=== PATIENT | female | born 1970 | race Caucasian/White ===

== ENCOUNTER 2016-10-28 17:04 | Emergency (ER) | payer MEDICAID ==
[~2016-10-28] VITALS: Ht 170.2 cm; Wt 65.0 kg
[2016-10-28 19:56] LABS: *BARBITURATES SCREEN URINE NEGATIVE (NEGATIVE); *BENZODIAZEPINES SCREEN URINE NEGATIVE (NEGATIVE); *COCAINE SCREEN URINE NEGATIVE (NEGATIVE); CANNABINOID URINE SCREEN NEGATIVE (NEGATIVE); METHADONE URINE SCREEN NEGATIVE (NEGATIVE); OPIATES URINE SCREEN NEGATIVE (NEGATIVE); PHENCYCLIDINE URINE SCREEN NEGATIVE (NEGATIVE)
[2016-10-28 19:59] LABS: *AMPHETAMINES SCREEN URINE PRESUMTIVE POSITIVE (NEGATIVE); ECSTASY MDMA SCREEN URINE CONF.TEST INDICATED (NEGATIVE)
[2016-10-28 22:20] VITALS: BP 125/87
== END 2016-10-28 22:35 | disposition home or self-care (01) ==
LOC: ER 18:03
DX: F15.10 Other stimulant abuse, uncomplicated (principal); F16.10 Hallucinogen abuse, uncomplicated
CPT/HCPCS: 80305; 81025; 99283; Z7610

== ENCOUNTER 2017-04-24 06:37 | Emergency (ER) | payer MEDICAID, OTHER ==
[~2017-04-24] VITALS: Ht 154.9 cm; Wt 64.0 kg
[2017-04-24] MEDS ORDERED: MAGNESIUM/ALUMINUM HYDROXIDE/SIMETHICONE 30ML UDC PO STA (07:36)
[2017-04-24] MEDS ORDERED: ONDANSETRON HCL 4MG/2ML VIAL IV STA (07:36)
[2017-04-24] MEDS ORDERED: FAMOTIDINE 20MG/2ML VIAL IV STA (07:36)
[2017-04-24] MEDS ORDERED: SODIUM CHLORIDE 0.9% 1,000 ML IV ONE (07:36)
[2017-04-24] MEDS ORDERED: MORPHINE SULFATE 2 MG/ML CPJ (NOT FOR IM USE) IV ONE (07:45)
[2017-04-24 08:22] LABS: EOSINOPHILS % 2.4 % (0.0-5.0); HEMOGLOBIN. 10.4 g/dL (12.0-16.0); MEAN CORPUSCULAR VOLUME 83.1 fL (81.0-99.0); MEAN PLATELET VOLUME 7.1 fl (7.4-10.4); MONOCYTES % 7.8 % (2.0-8.0); NEUTROPHILS % 57.8 % (40.0-76.0); PLATELET 408 x1000/uL (130-400); RED BLOOD CELL COUNT 3.85 mill/uL (4.2-5.4); RED CELL DISTRIBUTION WIDTH 17.3 % (11.6-14.6)
[2017-04-24 08:31] LABS: HCG SCREEN NEGATIVE; PROTHROMBIN TIME 10.1 sec (9.4-11.6)
[2017-04-24 08:39] LABS: CARBON DIOXIDE 26 mEq/L (21-32); CHLORIDE 109 mEq/L (98-107); TROPONIN I < 0.02 ng/mL (0.00-0.04)
[2017-04-24] MEDS ORDERED: MORPHINE SULFATE 10 MG/ML CPJ IV ONE (10:00)
[2017-04-24 10:09] LABS: GLUCOSE URINE NEGATIVE (NEGATIVE); KETONES URINE NEGATIVE (NEGATIVE); LEUKOCYTE ESTERASE URINE NEGATIVE (NEGATIVE); NITRITE URINE NEGATIVE (NEGATIVE); OCCULT BLOOD URINE NEGATIVE (NEGATIVE); PH URINE 6.5 (4.5-8.0); PROTEIN URINE NEGATIVE (NEGATIVE); SPECIFIC GRAVITY URINE 1.024 (1.005-1.030)
[2017-04-24 10:10] LABS: CLARITY URINE CLEAR (CLEAR); COLOR URINE YELLOW (YELLOW)
[2017-04-24 12:47] VITALS: BP 98/55
== END 2017-04-24 12:49 | disposition home or self-care (01) ==
LOC: ER 06:40
DX: K80.70 Calculus of gallbladder and bile duct without cholecystitis without obstruction (principal); R19.7 Diarrhea, unspecified; F15.10 Other stimulant abuse, uncomplicated; F17.290 Nicotine dependence, other tobacco product, uncomplicated
CPT/HCPCS: 36415; 71010; 76700; 80053; 81003; 83690; 84484; 84703; 85025; 85610; 93005; 96361; 96374; 96375; 96376; 99285; 99406; J2270; J2405; J3490; J7030; Z7610

== ENCOUNTER 2019-02-06 19:11 | Emergency (ER) | payer MEDICAID ==
[~2019-02-06] VITALS: Ht 154.9 cm; Wt 59.0 kg
[2019-02-06] MEDS ORDERED: ONDANSETRON HCL 4MG/2ML INJ IV STA (19:48)
[2019-02-06] MEDS ORDERED: SODIUM CHLORIDE 0.9% 1,000 ML IV ONE (19:48)
[2019-02-06] MEDS ORDERED: MORPHINE SULFATE 4 MG/ML CPJ (NOT FOR IM USE) IV ONE (20:00)
[2019-02-06 20:08] LABS: BASOPHILS % 0.8 % (0.0-2.0); EOSINOPHILS % 1.8 % (0.0-5.0); HEMATOCRIT. 31.5 % (36.0-48.0); HEMOGLOBIN. 9.9 g/dL (12.0-16.0); MEAN CORPUSCULAR HEMOGLOBIN 24.7 pg (28.0-32.0); MEAN CORPUSCULAR VOLUME 78.7 fL (81.0-99.0); MEAN PLATELET VOLUME 6.7 fl (7.4-10.4); MONOCYTES % 7.4 % (2.0-8.0); PLATELET 420 x1000/uL (130-400); RED CELL DISTRIBUTION WIDTH 19.9 % (11.6-14.6)
[2019-02-06 20:11] LABS: CHLORIDE 108 mEq/L (98-107)
[2019-02-06 20:12] LABS: PROTHROMBIN TIME 9.9 sec (9.6-11.0)
[2019-02-06 21:35] LABS: CLARITY URINE TURBID (CLEAR); COLOR URINE YELLOW (YELLOW); KETONES URINE TRACE (NEGATIVE); LEUKOCYTE ESTERASE URINE NEGATIVE (NEGATIVE); NITRITE URINE NEGATIVE (NEGATIVE); OCCULT BLOOD URINE NEGATIVE (NEGATIVE); PROTEIN URINE TRACE (NEGATIVE); SPECIFIC GRAVITY URINE 1.034 (1.005-1.030)
[2019-02-06] MEDS ORDERED: LORAZEPAM 2MG/ML CPJ IV ONE (22:45)
[2019-02-06] MEDS ORDERED: METOCLOPRAMIDE HCL 10MG/2ML VIAL IV ONE (22:45)
[2019-02-06] MEDS ORDERED: ONDANSETRON HCL 4MG/2ML INJ IV ONE (22:45)
[2019-02-07 03:00] VITALS: BP 125/79
== END 2019-02-07 03:10 | disposition home or self-care (01) ==
LOC: ER 19:11
DX: K52.9 Noninfective gastroenteritis and colitis, unspecified (principal); R11.2 Nausea with vomiting, unspecified; F15.10 Other stimulant abuse, uncomplicated; Z90.49 Acquired absence of other specified parts of digestive tract; Z88.6 Allergy status to analgesic agent
CPT/HCPCS: 36415; 71045; 74176; 76705; 80053; 81003; 83690; 85025; 85610; 96361; 96374; 96375; 96376; 99284; J2270; J2405; J2765; J7030

== ENCOUNTER 2019-09-13 14:30 | Emergency (ER) | payer OTHER ==
[~2019-09-13] VITALS: Ht 154.9 cm; Wt 64.0 kg
[2019-09-13] MEDS ORDERED: SODIUM CHLORIDE 0.9% 1,000 ML IV ONE (18:03)
[2019-09-13] MEDS ORDERED: ONDANSETRON HCL 4MG/2ML INJ IV STA (18:03)
[2019-09-13 18:47] LABS: CHLORIDE 110 mEq/L (98-107)
[2019-09-13 18:47] LABS: CLARITY URINE TURBID (CLEAR); COLOR URINE RED (YELLOW); KETONES URINE 2+ (NEGATIVE); LEUKOCYTE ESTERASE URINE 2+ (NEGATIVE); NITRITE URINE NEGATIVE (NEGATIVE); OCCULT BLOOD URINE 3+ (NEGATIVE); PH URINE 5.5 (4.5-8.0); PROTEIN URINE 3+ (NEGATIVE); SPECIFIC GRAVITY URINE 1.032 (1.005-1.030); UROBILINOGEN URINE 0.2 E.U./dL (0.2-1.0)
[2019-09-13 18:52] LABS: BASOPHILS % 0.6 % (0.0-2.0); EOSINOPHILS % 0.7 % (0.0-5.0); HEMATOCRIT. 36.5 % (36.0-48.0); HEMOGLOBIN. 12.2 g/dL (12.0-16.0); LYMPHOCYTES % 23.2 % (20.0-50.0); MEAN CORPUSCULAR HEMOGLOBIN 29.3 pg (28.0-32.0); MEAN CORPUSCULAR VOLUME 87.6 fL (81.0-99.0); MEAN PLATELET VOLUME 7.2 fl (7.4-10.4); MONOCYTES % 6.6 % (2.0-8.0); NEUTROPHILS % 68.9 % (40.0-76.0); PLATELET 429 x1000/uL (130-400); RED BLOOD CELL COUNT 4.17 mill/uL (4.2-5.4); RED CELL DISTRIBUTION WIDTH 15.1 % (11.6-14.6)
[2019-09-13] MEDS ORDERED: CEFTRIAXONE 1 G PREMIX 50 ML IV ONE (19:30)
[2019-09-13 21:00] VITALS: BP 136/84
== END 2019-09-13 21:01 | disposition home or self-care (01) ==
LOC: ER 14:30
DX: N39.0 Urinary tract infection, site not specified (principal); R03.0 Elevated blood-pressure reading, without diagnosis of hypertension; E86.0 Dehydration; R06.00 Dyspnea, unspecified; Z85.9 Personal history of malignant neoplasm, unspecified; Z92.3 Personal history of irradiation
CPT/HCPCS: 36415; 71045; 80053; 81003; 81025; 83605; 83690; 83880; 84484; 85025; 93005; 96365; 96375; 99285; J0696; J2405; J7030

== ENCOUNTER 2019-09-20 22:53 | Emergency (ER) | payer OTHER ==
[~2019-09-20] VITALS: Ht 165.1 cm; Wt 63.0 kg
[2019-09-20] MEDS ORDERED: ONDANSETRON HCL 4MG/2ML INJ IV STA (23:59)
[2019-09-20] MEDS ORDERED: MORPHINE SULFATE 4 MG/ML CPJ (NOT FOR IM USE) IV STA (23:59)
[2019-09-20] MEDS ORDERED: SODIUM CHLORIDE 0.9% 1,000 ML IV ONE (23:59)
[2019-09-21 00:37] LABS: EOSINOPHILS % 1.2 % (0.0-5.0); HEMATOCRIT. 34.4 % (36.0-48.0); HEMOGLOBIN. 11.3 g/dL (12.0-16.0); LYMPHOCYTES % 32.1 % (20.0-50.0); MEAN CORPUSCULAR HEMOGLOBIN 28.7 pg (28.0-32.0); NEUTROPHILS % 56.7 % (40.0-76.0); PLATELET 429 x1000/uL (130-400); RED BLOOD CELL COUNT 3.95 mill/uL (4.2-5.4); RED CELL DISTRIBUTION WIDTH 14.7 % (11.6-14.6)
[2019-09-21 00:38] LABS: CHLORIDE 106 mEq/L (98-107)
[2019-09-21] MEDS ORDERED: IOHEXOL-300 100 ML BOTTLE ONE (02:46)
[2019-09-21 06:09] VITALS: BP 111/60
== END 2019-09-21 06:36 | disposition home or self-care (01) ==
LOC: ER 22:53
DX: R11.2 Nausea with vomiting, unspecified (principal); R19.7 Diarrhea, unspecified; M79.10 Myalgia, unspecified site; Z85.038 Personal history of other malignant neoplasm of large intestine; Z88.6 Allergy status to analgesic agent; Z90.49 Acquired absence of other specified parts of digestive tract
CPT/HCPCS: 36415; 74177; 80053; 83605; 83690; 85025; 96361; 96374; 96375; 99285; J2270; J2405; J7030; Q9967

== ENCOUNTER 2019-10-06 22:43 | Inpatient (IN) | payer MEDICAID, OTHER ==
[~2019-10-06] VITALS: Ht 154.9 cm; Wt 62.6 kg
[2019-10-06] MEDS ORDERED: ONDANSETRON HCL 4MG/2ML INJ IV STA (23:10)
[2019-10-06] MEDS ORDERED: SODIUM CHLORIDE 0.9% 1,000 ML IV ONE (23:10)
[2019-10-06] MEDS ORDERED: MORPHINE SULFATE 4 MG/ML CPJ (NOT FOR IM USE) IV STA (23:10)
[2019-10-06 23:30] LABS: CHLORIDE 111 mEq/L (98-107)
[2019-10-06 23:48] LABS: BASOPHILS % 0.8 % (0.0-2.0); HCG SCREEN NEGATIVE; HEMATOCRIT. 30.5 % (36.0-48.0); LYMPHOCYTES % 25.7 % (20.0-50.0); MEAN CORPUSCULAR HEMOGLOBIN 28.1 pg (28.0-32.0); MEAN CORPUSCULAR VOLUME 85.8 fL (81.0-99.0); MONOCYTES % 7.7 % (2.0-8.0); NEUTROPHILS % 63.8 % (40.0-76.0); PLATELET 398 x1000/uL (130-400); RED BLOOD CELL COUNT 3.56 mill/uL (4.2-5.4); RED CELL DISTRIBUTION WIDTH 15.1 % (11.6-14.6)
[2019-10-06 23:54] LABS: CLARITY URINE TURBID (CLEAR); COLOR URINE RED (YELLOW); KETONES URINE NEGATIVE (NEGATIVE); LEUKOCYTE ESTERASE URINE 2+ (NEGATIVE); NITRITE URINE POSITIVE (NEGATIVE); OCCULT BLOOD URINE 3+ (NEGATIVE); PROTEIN URINE 2+ (NEGATIVE); SPECIFIC GRAVITY URINE 1.042 (1.005-1.030); UROBILINOGEN URINE 0.2 E.U./dL (0.2-1.0)
[2019-10-07] MEDS ORDERED: CEFTRIAXONE 1 G PREMIX 50 ML IV ONE (00:30)
[2019-10-07] MEDS ORDERED: MORPHINE SULFATE 4 MG/ML CPJ (NOT FOR IM USE) IV ONE (02:15)
[2019-10-07] MEDS ORDERED: ONDANSETRON HCL 4MG/2ML INJ IV ONE (02:30)
[2019-10-07 09:15] VITALS: BP 100/58
[2019-10-07 09:30] VITALS: BP 100/58
[2019-10-07] MEDS ORDERED: GUAIFENESIN 200MG/10ML SUGAR FREE UDC PO PRN (10:30)
[2019-10-07] MEDS ORDERED: CLONIDINE 0.1MG TABLET PO PRN (10:30)
[2019-10-07] MEDS ORDERED: ONDANSETRON HCL 4MG/2ML INJ IV PRN (10:30)
[2019-10-07] MEDS ORDERED: HYDROCODONE/ACETAMINOPHEN 5/325MG TABLET PO PRN (10:30)
[2019-10-07] MEDS ORDERED: ACETAMINOPHEN 325MG TABLET PO PRN (10:30)
[2019-10-07] MEDS ORDERED: LORAZEPAM 0.5MG TABLET PO PRN (10:30)
[2019-10-07] MEDS ORDERED: IPRATROPIUM/ALBUTEROL 0.5-3(2.5)MG/3ML NEB HHN PRN (10:30)
[2019-10-07 12:00] VITALS: BP 98/53
[2019-10-07] MEDS ORDERED: MORPHINE SULFATE 4 MG/ML CPJ (NOT FOR IM USE) IV PRN (13:15)
[2019-10-07 16:06] LABS: METHADONE URINE SCREEN NEGATIVE (NEGATIVE); PHENCYCLIDINE URINE SCREEN NEGATIVE (NEGATIVE)
[2019-10-07 16:07] LABS: *AMPHETAMINES SCREEN URINE NEGATIVE (NEGATIVE); *BARBITURATES SCREEN URINE NEGATIVE (NEGATIVE); *BENZODIAZEPINES SCREEN URINE NEGATIVE (NEGATIVE); *COCAINE SCREEN URINE NEGATIVE (NEGATIVE); CANNABINOID URINE SCREEN NEGATIVE (NEGATIVE)
[2019-10-07 16:34] LABS: OPIATES URINE SCREEN PRESUMTIVE POSITIVE (NEGATIVE)
[2019-10-07 18:40] VITALS: BP 98/59
== END 2019-10-07 18:36 | disposition short-term general hospital (02) | DRG 251 ==
LOC: ER 22:43 → ENRESERV 10-07 07:37 → 6EST 10-07 09:09
PROVIDERS: ADMIT Internal Medicine; ATTEND Internal Medicine
DX: R10.9 Unspecified abdominal pain (principal); K75.89 Other specified inflammatory liver diseases; C76.3 Malignant neoplasm of pelvis; D64.9 Anemia, unspecified; K29.70 Gastritis, unspecified, without bleeding; N39.0 Urinary tract infection, site not specified; N83.209 Unspecified ovarian cyst, unspecified side; T45.1X5A Adverse effect of antineoplastic and immunosuppressive drugs, initial encounter; Y92.89 Other specified places as the place of occurrence of the external cause; Z90.49 Acquired absence of other specified parts of digestive tract
CPT/HCPCS: 36415; 71045; 74176; 80053; 80305; 81003; 84703; 85025; 93005; 99285; J0696; J2270; J2405; J7030

== ENCOUNTER 2019-10-10 13:34 | Emergency (ER) | payer OTHER ==
[~2019-10-10] VITALS: Ht 160 cm; Wt 54.0 kg
[2019-10-10] MEDS ORDERED: ONDANSETRON 4MG ODT PO ONE (14:00)
[2019-10-10 14:35] LABS: CLARITY URINE CLOUDY (CLEAR); COLOR URINE YELLOW (YELLOW); KETONES URINE NEGATIVE (NEGATIVE); LEUKOCYTE ESTERASE URINE NEGATIVE (NEGATIVE); NITRITE URINE NEGATIVE (NEGATIVE); OCCULT BLOOD URINE 3+ (NEGATIVE); PH URINE 6.5 (4.5-8.0); PROTEIN URINE NEGATIVE (NEGATIVE); SPECIFIC GRAVITY URINE 1.014 (1.005-1.030); UROBILINOGEN URINE 0.2 E.U./dL (0.2-1.0)
[2019-10-10] MEDS ORDERED: SODIUM CHLORIDE 0.9% 1,000 ML IV ONE (15:01)
[2019-10-10] MEDS ORDERED: ONDANSETRON HCL 4MG/2ML INJ IV ONE (15:15)
[2019-10-10 15:34] LABS: HEMATOCRIT. 32.1 % (36.0-48.0); HEMOGLOBIN. 10.5 g/dL (12.0-16.0); LYMPHOCYTES % 21.2 % (20.0-50.0); MEAN CORPUSCULAR HEMOGLOBIN 27.9 pg (28.0-32.0); MEAN CORPUSCULAR VOLUME 85.3 fL (81.0-99.0); MEAN PLATELET VOLUME 6.9 fl (7.4-10.4); MONOCYTES % 6.6 % (2.0-8.0); NEUTROPHILS % 70.2 % (40.0-76.0); PLATELET 399 x1000/uL (130-400); RED BLOOD CELL COUNT 3.76 mill/uL (4.2-5.4); RED CELL DISTRIBUTION WIDTH 14.9 % (11.6-14.6)
[2019-10-10 15:37] LABS: CHLORIDE 109 mEq/L (98-107)
[2019-10-10 15:50] VITALS: BP 108/66
== END 2019-10-10 16:27 | disposition home or self-care (01) ==
LOC: ER 13:49
DX: R11.2 Nausea with vomiting, unspecified (principal); Z85.9 Personal history of malignant neoplasm, unspecified; Z90.49 Acquired absence of other specified parts of digestive tract; Z88.6 Allergy status to analgesic agent
CPT/HCPCS: 36415; 80053; 81003; 83690; 85025; 96361; 96374; 99283; J2405; J7030; Q0162

== ENCOUNTER 2019-10-14 16:38 | Emergency (ER) | payer OTHER ==
[~2019-10-14] VITALS: Ht 154.9 cm; Wt 64.0 kg
[2019-10-14 19:20] LABS: CLARITY URINE CLOUDY (CLEAR); COLOR URINE YELLOW (YELLOW); KETONES URINE NEGATIVE (NEGATIVE); LEUKOCYTE ESTERASE URINE NEGATIVE (NEGATIVE); NITRITE URINE NEGATIVE (NEGATIVE); OCCULT BLOOD URINE NEGATIVE (NEGATIVE); PROTEIN URINE TRACE (NEGATIVE); SPECIFIC GRAVITY URINE 1.026 (1.005-1.030); UROBILINOGEN URINE 0.2 E.U./dL (0.2-1.0)
[2019-10-14 19:21] LABS: BASOPHILS % 0.9 % (0.0-2.0); EOSINOPHILS % 1.7 % (0.0-5.0); HEMATOCRIT. 31.7 % (36.0-48.0); HEMOGLOBIN. 10.5 g/dL (12.0-16.0); LYMPHOCYTES % 26.2 % (20.0-50.0); MEAN CORPUSCULAR HEMOGLOBIN 28.1 pg (28.0-32.0); MEAN CORPUSCULAR VOLUME 84.9 fL (81.0-99.0); MEAN PLATELET VOLUME 7.5 fl (7.4-10.4); MONOCYTES % 6.9 % (2.0-8.0); NEUTROPHILS % 64.3 % (40.0-76.0); PLATELET 385 x1000/uL (130-400); RED BLOOD CELL COUNT 3.73 mill/uL (4.2-5.4); RED CELL DISTRIBUTION WIDTH 15.7 % (11.6-14.6)
[2019-10-14 19:22] LABS: CHLORIDE 108 mEq/L (98-107)
[2019-10-14] MEDS ORDERED: ONDANSETRON HCL 4MG/2ML INJ IV ONE (19:45)
[2019-10-14] MEDS ORDERED: MORPHINE SULFATE 4 MG/ML CPJ (NOT FOR IM USE) IV ONE ×2 (19:45→21:45)
[2019-10-14] MEDS ORDERED: SODIUM CHLORIDE 0.9% 1,000 ML IV ONE (19:45)
[2019-10-14] MEDS ORDERED: DIPHENHYDRAMINE 25MG CAPSULE PO ONE (21:45)
[2019-10-14] MEDS ORDERED: IOHEXOL-300 100 ML BOTTLE ONE (23:13)
[2019-10-15 02:38] VITALS: BP 105/66
== END 2019-10-15 02:39 | disposition home or self-care (01) ==
LOC: ER 16:38
DX: R10.9 Unspecified abdominal pain (principal); Z88.6 Allergy status to analgesic agent; Z90.49 Acquired absence of other specified parts of digestive tract
CPT/HCPCS: 36415; 71045; 74177; 80053; 81003; 81025; 83690; 85025; 96374; 96375; 96376; 99285; J2270; J2405; J7030; Q0163; Q9967

== ENCOUNTER 2019-10-16 11:15 | Emergency (ER) | payer OTHER ==
[~2019-10-16] VITALS: Ht 165.1 cm; Wt 63.0 kg
[2019-10-16] MEDS ORDERED: MORPHINE SULFATE 4 MG/ML CPJ (NOT FOR IM USE) IV STA (11:39)
[2019-10-16] MEDS ORDERED: ONDANSETRON HCL 4MG/2ML INJ IV STA (11:39)
[2019-10-16] MEDS ORDERED: SODIUM CHLORIDE 0.9% 1,000 ML IV ONE (11:39)
[2019-10-16 14:27] LABS: BASOPHILS % 0.9 % (0.0-2.0); EOSINOPHILS % 1.7 % (0.0-5.0); HEMATOCRIT. 31.9 % (36.0-48.0); HEMOGLOBIN. 10.3 g/dL (12.0-16.0); LYMPHOCYTES % 32.8 % (20.0-50.0); MEAN CORPUSCULAR HEMOGLOBIN 27.5 pg (28.0-32.0); MEAN CORPUSCULAR VOLUME 85.6 fL (81.0-99.0); MEAN PLATELET VOLUME 7.5 fl (7.4-10.4); MONOCYTES % 6.2 % (2.0-8.0); NEUTROPHILS % 58.4 % (40.0-76.0); PLATELET 352 x1000/uL (130-400); RED BLOOD CELL COUNT 3.73 mill/uL (4.2-5.4); RED CELL DISTRIBUTION WIDTH 15.5 % (11.6-14.6)
[2019-10-16 14:29] LABS: CLARITY URINE CLEAR (CLEAR); COLOR URINE YELLOW (YELLOW); KETONES URINE NEGATIVE (NEGATIVE); LEUKOCYTE ESTERASE URINE NEGATIVE (NEGATIVE); NITRITE URINE NEGATIVE (NEGATIVE); OCCULT BLOOD URINE NEGATIVE (NEGATIVE); PH URINE 7.5 (4.5-8.0); PROTEIN URINE NEGATIVE (NEGATIVE); SPECIFIC GRAVITY URINE 1.003 (1.005-1.030); UROBILINOGEN URINE 0.2 E.U./dL (0.2-1.0)
[2019-10-16 14:34] LABS: CHLORIDE 113 mEq/L (98-107)
[2019-10-16 14:46] LABS: HCG SCREEN NEGATIVE
[2019-10-16] MEDS ORDERED: KETOROLAC 15MG/ML VIAL IV ONE (15:15)
[2019-10-16 16:20] VITALS: BP 121/73
== END 2019-10-16 16:40 | disposition home or self-care (01) ==
LOC: ER 11:28
DX: D25.9 Leiomyoma of uterus, unspecified (principal); N83.202 Unspecified ovarian cyst, left side; L73.1 Pseudofolliculitis barbae; R03.0 Elevated blood-pressure reading, without diagnosis of hypertension; Z85.53 Personal history of malignant neoplasm of renal pelvis
CPT/HCPCS: 36415; 71045; 74176; 76830; 76856; 80053; 81003; 83690; 84703; 85025; 93005; 96361; 96374; 96375; 99285; J1885; J2270; J2405; J7030

== ENCOUNTER 2019-10-17 18:37 | Emergency (ER) | payer OTHER ==
[~2019-10-17] VITALS: Ht 177.8 cm; Wt 77.0 kg
[2019-10-17] MEDS ORDERED: SODIUM CHLORIDE 0.9% 500 ML IV ONE (20:45)
[2019-10-17] MEDS ORDERED: MORPHINE SULFATE 4 MG/ML CPJ (NOT FOR IM USE) IV ONE (20:45)
[2019-10-17] MEDS ORDERED: ONDANSETRON HCL 4MG/2ML INJ IV ONE (20:45)
[2019-10-17 21:37] LABS: EOSINOPHILS % 2.2 % (0.0-5.0); HEMATOCRIT. 31.8 % (36.0-48.0); HEMOGLOBIN. 10.2 g/dL (12.0-16.0); LYMPHOCYTES % 33.6 % (20.0-50.0); MEAN CORPUSCULAR HEMOGLOBIN 27.6 pg (28.0-32.0); MEAN CORPUSCULAR VOLUME 85.9 fL (81.0-99.0); MEAN PLATELET VOLUME 7.5 fl (7.4-10.4); MONOCYTES % 6.4 % (2.0-8.0); NEUTROPHILS % 56.8 % (40.0-76.0); PLATELET 365 x1000/uL (130-400); RED CELL DISTRIBUTION WIDTH 15.3 % (11.6-14.6)
[2019-10-17 21:41] LABS: CHLORIDE 109 mEq/L (98-107)
[2019-10-17 21:44] LABS: HCG SCREEN NEGATIVE
[2019-10-17] MEDS ORDERED: HYDROMORPHONE HCL/PF 2MG/ML CPJ IV ONE (22:45)
[2019-10-18] MEDS ORDERED: MORPHINE SULFATE 2 MG/ML CPJ (NOT FOR IM USE) IV PRN (00:15)
[2019-10-18 01:20] VITALS: BP 140/86
== END 2019-10-18 02:58 | disposition home or self-care (01) ==
LOC: ER 18:37 → CANBEDREQ 10-18 00:33 → ER 10-18 02:58
DX: R10.84 Generalized abdominal pain (principal); C76.3 Malignant neoplasm of pelvis
CPT/HCPCS: 36415; 80053; 83690; 84703; 85025; 96374; 96375; 96376; 99284; J1170; J2270; J2405; J7040

== ENCOUNTER 2019-10-22 17:10 | Emergency (ER) | payer OTHER ==
[~2019-10-22] VITALS: Ht 162.6 cm; Wt 64.0 kg
[2019-10-22] MEDS ORDERED: OXYCODONE HCL 10MG TABLET SR 12HR PO ONE (18:00)
[2019-10-22] MEDS ORDERED: OXYCODONE HCL 5MG TABLET PO NR (18:58)
[2019-10-22] MEDS ORDERED: MORPHINE SULFATE 4 MG/ML CPJ (NOT FOR IM USE) IV ONE (19:45)
[2019-10-22] MEDS ORDERED: ONDANSETRON HCL 4MG/2ML INJ IV ONE (20:15)
[2019-10-22] MEDS ORDERED: DIPHENHYDRAMINE 25MG CAPSULE PO ONE (21:00)
[2019-10-22 22:35] LABS: HEMATOCRIT. 34.1 % (36.0-48.0); HEMOGLOBIN. 11.1 g/dL (12.0-16.0); MEAN CORPUSCULAR HEMOGLOBIN 27.6 pg (28.0-32.0); MEAN CORPUSCULAR VOLUME 84.5 fL (81.0-99.0); MEAN PLATELET VOLUME 7.2 fl (7.4-10.4); PLATELET 438 x1000/uL (130-400); RED BLOOD CELL COUNT 4.03 mill/uL (4.2-5.4); RED CELL DISTRIBUTION WIDTH 15.9 % (11.6-14.6)
[2019-10-22 22:41] LABS: CHLORIDE 110 mEq/L (98-107)
[2019-10-22 22:47] LABS: CLARITY URINE CLEAR (CLEAR); COLOR URINE YELLOW (YELLOW); KETONES URINE 1+ (NEGATIVE); LEUKOCYTE ESTERASE URINE 2+ (NEGATIVE); NITRITE URINE NEGATIVE (NEGATIVE); OCCULT BLOOD URINE NEGATIVE (NEGATIVE); PH URINE 5.5 (4.5-8.0); PROTEIN URINE NEGATIVE (NEGATIVE); SPECIFIC GRAVITY URINE 1.006 (1.005-1.030); UROBILINOGEN URINE 0.2 E.U./dL (0.2-1.0)
[2019-10-22 23:49] VITALS: BP 95/56
[2019-10-23 02:09] LABS: PLATELET ESTIMATE INCREASED
== END 2019-10-23 00:09 | disposition home or self-care (01) ==
LOC: ER 17:10
DX: G89.3 Neoplasm related pain (acute) (chronic) (principal); C56.9 Malignant neoplasm of unspecified ovary; Z92.21 Personal history of antineoplastic chemotherapy
CPT/HCPCS: 36415; 80048; 81003; 83690; 85025; 96374; 96375; 99285; J2270; J2405; Q0163

== ENCOUNTER 2019-10-26 00:28 | Emergency (ER) | payer OTHER ==
[~2019-10-26] VITALS: Ht 154.9 cm; Wt 61.0 kg
[2019-10-26] MEDS ORDERED: FENTANYL CITRATE/PF 50MCG/ML 2ML VIAL IM ONE ×2 (01:30→01:45)
[2019-10-26 02:03] VITALS: BP 126/80
== END 2019-10-26 02:04 | disposition home or self-care (01) ==
LOC: ER 00:28
DX: G89.29 Other chronic pain (principal); R10.9 Unspecified abdominal pain; Z88.6 Allergy status to analgesic agent; Z85.43 Personal history of malignant neoplasm of ovary; Z98.890 Other specified postprocedural states
CPT/HCPCS: 96372; 99283; J3010

== ENCOUNTER 2019-11-14 00:42 | Emergency (ER) | payer OTHER ==
[~2019-11-14] VITALS: Ht 154.9 cm; Wt 63.0 kg
[2019-11-14] MEDS ORDERED: MORPHINE SULFATE 4 MG/ML CPJ (NOT FOR IM USE) IV ONE (01:45)
[2019-11-14] MEDS ORDERED: MORPHINE SULFATE 10 MG/ML CPJ IM SCH (02:00)
[2019-11-14 02:26] VITALS: BP 128/74
== END 2019-11-14 02:38 | disposition home or self-care (01) ==
LOC: ER 00:42
DX: G89.29 Other chronic pain (principal); M79.10 Myalgia, unspecified site; R00.0 Tachycardia, unspecified; Z88.6 Allergy status to analgesic agent; Z85.43 Personal history of malignant neoplasm of ovary; Z90.49 Acquired absence of other specified parts of digestive tract; Z98.890 Other specified postprocedural states
CPT/HCPCS: 96372; 99283; J2270

== ENCOUNTER 2019-11-21 19:46 | Emergency (ER) | payer OTHER ==
[~2019-11-21] VITALS: Ht 165.1 cm; Wt 57.0 kg
[2019-11-21] MEDS ORDERED: MORPHINE SULFATE 4 MG/ML CPJ (NOT FOR IM USE) IV STA (20:57)
[2019-11-21] MEDS ORDERED: FAMOTIDINE 20MG/2ML VIAL IV STA (20:57)
[2019-11-21] MEDS ORDERED: ONDANSETRON HCL 4MG/2ML INJ IV STA (20:57)
[2019-11-21 21:15] LABS: BASOPHILS % 0.9 % (0.0-2.0); EOSINOPHILS % 3.9 % (0.0-5.0); HEMATOCRIT. 30.7 % (36.0-48.0); HEMOGLOBIN. 9.8 g/dL (12.0-16.0); MEAN CORPUSCULAR HEMOGLOBIN 26.6 pg (28.0-32.0); MEAN CORPUSCULAR VOLUME 83.1 fL (81.0-99.0); MEAN PLATELET VOLUME 7.3 fl (7.4-10.4); MONOCYTES % 6.4 % (2.0-8.0); NEUTROPHILS % 53.8 % (40.0-76.0); PLATELET 441 x1000/uL (130-400); RED BLOOD CELL COUNT 3.69 mill/uL (4.2-5.4); RED CELL DISTRIBUTION WIDTH 17.2 % (11.6-14.6)
[2019-11-21 21:19] LABS: CHLORIDE 111 mEq/L (98-107)
[2019-11-22 00:31] VITALS: BP 111/70
[2019-12-05] MEDS ORDERED: HYDR-3281 PO (04:45)
[2019-12-05] MEDS ORDERED: ONDA4TAB5 PO (04:46)
== END 2019-11-22 00:33 | disposition home or self-care (01) ==
LOC: ER 19:46
DX: R10.13 Epigastric pain (principal); G89.29 Other chronic pain; R11.2 Nausea with vomiting, unspecified
CPT/HCPCS: 36415; 80053; 83690; 85025; 96374; 96375; 99285; J2270; J2405; J3490

== ENCOUNTER 2019-11-29 23:59 | Emergency (ER) | payer OTHER, MEDICAID ==
[~2019-11-29] VITALS: Ht 162.6 cm; Wt 61.0 kg
[2019-11-30] MEDS ORDERED: ONDANSETRON 4MG ODT PO ONE (00:30)
[2019-11-30] MEDS ORDERED: MORPHINE SULFATE 10 MG/ML CPJ IM ONE (00:30)
[2019-11-30 00:41] VITALS: BP 125/99
[2019-12-05] MEDS ORDERED: HYDR-3281 PO (04:45)
[2019-12-05] MEDS ORDERED: ONDA4TAB5 PO (04:46)
== END 2019-11-30 01:02 | disposition home or self-care (01) ==
LOC: ER 23:59
DX: M79.18 Myalgia, other site (principal); Z85.9 Personal history of malignant neoplasm, unspecified; Z98.890 Other specified postprocedural states; Z88.6 Allergy status to analgesic agent
CPT/HCPCS: 96372; 99283; J2270; Q0162

== ENCOUNTER 2019-11-30 21:00 | Emergency (ER) | payer OTHER ==
[~2019-11-30] VITALS: Ht 154.9 cm; Wt 65.0 kg
[2019-11-30 22:01] VITALS: BP 135/89
[2019-11-30] MEDS ORDERED: ACETAMINOPHEN 500MG TABLET PO ONE (23:00)
[2019-12-05] MEDS ORDERED: HYDR-3281 PO (04:45)
[2019-12-05] MEDS ORDERED: ONDA4TAB5 PO (04:46)
== END 2019-12-01 01:00 | disposition home or self-care (01) ==
LOC: ER 21:00
DX: G89.29 Other chronic pain (principal); R10.9 Unspecified abdominal pain; Z76.5 Malingerer [conscious simulation]; R53.1 Weakness; K92.1 Melena; R03.0 Elevated blood-pressure reading, without diagnosis of hypertension; Z85.43 Personal history of malignant neoplasm of ovary
CPT/HCPCS: 99282

== ENCOUNTER 2019-12-02 11:43 | Emergency (ER) | payer OTHER ==
[~2019-12-02] VITALS: Ht 162.6 cm; Wt 65.0 kg
[2019-12-02] MEDS ORDERED: SODIUM CHLORIDE 0.9% 1,000 ML IV ONE (12:02)
[2019-12-02] MEDS ORDERED: ONDANSETRON HCL 4MG/2ML INJ IV STA (12:02)
[2019-12-02] MEDS ORDERED: MORPHINE SULFATE 4 MG/ML CPJ (NOT FOR IM USE) IV STA (12:02)
[2019-12-02 12:46] LABS: BASOPHILS % 0.9 % (0.0-2.0); CHLORIDE 111 mEq/L (98-107); HEMATOCRIT. 32.3 % (36.0-48.0); HEMOGLOBIN. 10.4 g/dL (12.0-16.0); LYMPHOCYTES % 24.4 % (20.0-50.0); MEAN CORPUSCULAR HEMOGLOBIN 26.3 pg (28.0-32.0); MEAN CORPUSCULAR VOLUME 81.4 fL (81.0-99.0); MEAN PLATELET VOLUME 6.7 fl (7.4-10.4); MONOCYTES % 4.9 % (2.0-8.0); NEUTROPHILS % 68.8 % (40.0-76.0); PLATELET 551 x1000/uL (130-400); RED BLOOD CELL COUNT 3.97 mill/uL (4.2-5.4); RED CELL DISTRIBUTION WIDTH 18.2 % (11.6-14.6)
[2019-12-02 12:47] LABS: PROTHROMBIN TIME 10.5 sec (9.6-11.0)
[2019-12-02 12:50] LABS: ETHANOL BLOOD < 10 mg/dL
[2019-12-02 12:59] LABS: HCG SCREEN NEGATIVE
[2019-12-02] MEDS ORDERED: MORPHINE SULFATE 4 MG/ML CPJ (NOT FOR IM USE) IV ONE (14:15)
[2019-12-02] MEDS ORDERED: ONDANSETRON HCL 4MG/2ML INJ IV ONE (14:15)
[2019-12-02 14:45] VITALS: BP 130/79
[2019-12-05] MEDS ORDERED: HYDR-3281 PO (04:45)
[2019-12-05] MEDS ORDERED: ONDA4TAB5 PO (04:46)
== END 2019-12-02 16:45 | disposition short-term general hospital (02) ==
LOC: ER 11:43 → CANBEDREQ 14:47 → ER 16:45
DX: C56.9 Malignant neoplasm of unspecified ovary (principal); G89.29 Other chronic pain; R10.9 Unspecified abdominal pain; R06.00 Dyspnea, unspecified; R11.2 Nausea with vomiting, unspecified; R19.7 Diarrhea, unspecified; Z88.8 Allergy status to other drugs, medicaments and biological substances; Z90.49 Acquired absence of other specified parts of digestive tract; Z98.890 Other specified postprocedural states
CPT/HCPCS: 36415; 71045; 74176; 80053; 80320; 83690; 83880; 84484; 84703; 85025; 85610; 86850; 86900; 86901; 93005; 96361; 96374; 96375; 96376; 99285; J2270; J2405; J7030; G0480

== ENCOUNTER 2019-12-04 15:27 | Emergency (ER) | payer MEDICAID, OTHER ==
[~2019-12-04] VITALS: Ht 154.9 cm; Wt 65.0 kg
[2019-12-04] MEDS ORDERED: KETOROLAC 30MG/ML VIAL IV STA (15:55)
[2019-12-04 16:39] LABS: CHLORIDE 111 mEq/L (98-107)
[2019-12-04 16:53] LABS: BASOPHILS % 1.1 % (0.0-2.0); EOSINOPHILS % 1.4 % (0.0-5.0); HEMATOCRIT. 31.2 % (36.0-48.0); HEMOGLOBIN. 10.2 g/dL (12.0-16.0); LYMPHOCYTES % 24.9 % (20.0-50.0); MEAN CORPUSCULAR HEMOGLOBIN 26.4 pg (28.0-32.0); MEAN CORPUSCULAR VOLUME 80.7 fL (81.0-99.0); MEAN PLATELET VOLUME 7.2 fl (7.4-10.4); MONOCYTES % 4.4 % (2.0-8.0); NEUTROPHILS % 68.2 % (40.0-76.0); PLATELET 520 x1000/uL (130-400); RED BLOOD CELL COUNT 3.87 mill/uL (4.2-5.4); RED CELL DISTRIBUTION WIDTH 17.9 % (11.6-14.6)
[2019-12-04 17:27] VITALS: BP 113/71
[2019-12-05] MEDS ORDERED: HYDR-3281 PO (04:45)
[2019-12-05] MEDS ORDERED: ONDA4TAB5 PO (04:46)
== END 2019-12-04 17:31 | disposition home or self-care (01) ==
LOC: ER 15:27
DX: M79.18 Myalgia, other site (principal)
CPT/HCPCS: 36415; 71045; 80053; 84484; 85025; 93005; 96374; 99285; J1885

== ENCOUNTER 2019-12-07 15:10 | Emergency (ER) | payer OTHER ==
[~2019-12-07] VITALS: Ht 154.9 cm; Wt 65.0 kg
[~2019-12-07 15:10] MED LIST: HYDR-3281 PO; ONDA4TAB5 PO
[2019-12-07] MEDS ORDERED: MORPHINE SULFATE 4 MG/ML CPJ (NOT FOR IM USE) IV STA (17:32)
[2019-12-07] MEDS ORDERED: SODIUM CHLORIDE 0.9% 1,000 ML IV ONE (17:32)
[2019-12-07] MEDS ORDERED: ONDANSETRON HCL 4MG/2ML INJ IV STA (17:32)
[2019-12-07 17:57] LABS: HEMATOCRIT. 30.1 % (36.0-48.0); HEMOGLOBIN. 9.8 g/dL (12.0-16.0); MEAN CORPUSCULAR HEMOGLOBIN 26.2 pg (28.0-32.0); MEAN CORPUSCULAR VOLUME 80.7 fL (81.0-99.0); MEAN PLATELET VOLUME 7.1 fl (7.4-10.4); PLATELET 460 x1000/uL (130-400); RED BLOOD CELL COUNT 3.73 mill/uL (4.2-5.4); RED CELL DISTRIBUTION WIDTH 18.7 % (11.6-14.6)
[2019-12-07 18:04] LABS: CHLORIDE 109 mEq/L (98-107)
[2019-12-07 18:05] LABS: PROTHROMBIN TIME 10.6 sec (9.6-11.0)
[2019-12-07 18:12] LABS: CREATINE KINASE 47 IU/L (26-192)
[2019-12-07 18:15] LABS: CREATINE KINASE MB FRACTION < 1.0 ng/mL (0.5-3.6)
[2019-12-07 18:45] LABS: CLARITY URINE CLEAR (CLEAR); COLOR URINE YELLOW (YELLOW); KETONES URINE 1+ (NEGATIVE); LEUKOCYTE ESTERASE URINE 2+ (NEGATIVE); NITRITE URINE NEGATIVE (NEGATIVE); OCCULT BLOOD URINE NEGATIVE (NEGATIVE); PROTEIN URINE NEGATIVE (NEGATIVE); SPECIFIC GRAVITY URINE 1.023 (1.005-1.030); UROBILINOGEN URINE 0.2 E.U./dL (0.2-1.0)
[2019-12-07 18:53] LABS: PLATELET ESTIMATE INCREASED
[2019-12-07 19:01] LABS: *AMPHETAMINES SCREEN URINE NEGATIVE (NEGATIVE); *BARBITURATES SCREEN URINE NEGATIVE (NEGATIVE); *BENZODIAZEPINES SCREEN URINE NEGATIVE (NEGATIVE)
[2019-12-07 19:02] LABS: *COCAINE SCREEN URINE NEGATIVE (NEGATIVE); CANNABINOID URINE SCREEN NEGATIVE (NEGATIVE); METHADONE URINE SCREEN NEGATIVE (NEGATIVE); PHENCYCLIDINE URINE SCREEN NEGATIVE (NEGATIVE)
[2019-12-07 19:04] LABS: OPIATES URINE SCREEN PRESUMTIVE POSITIVE (NEGATIVE)
[2019-12-07 20:02] VITALS: BP 124/70
== END 2019-12-07 20:31 | disposition home or self-care (01) ==
LOC: ER 15:10
DX: C56.9 Malignant neoplasm of unspecified ovary (principal); G89.29 Other chronic pain; M79.10 Myalgia, unspecified site; Z90.49 Acquired absence of other specified parts of digestive tract; Z98.890 Other specified postprocedural states; Z88.6 Allergy status to analgesic agent; Z79.899 Other long term (current) drug therapy
CPT/HCPCS: 36415; 80053; 80305; 81003; 82550; 82553; 83690; 85025; 85610; 96374; 96375; 99284; J2270; J2405; J7030

== ENCOUNTER 2019-12-10 14:23 | Emergency (ER) | payer OTHER ==
[~2019-12-10] VITALS: Ht 154.9 cm; Wt 63.9 kg
[2019-12-10] MEDS ORDERED: ACETAMINOPHEN 325MG TABLET PO ONE (15:15)
[2019-12-10 16:10] VITALS: BP 127/75
== END 2019-12-10 16:11 | disposition home or self-care (01) ==
LOC: ER 14:23
DX: G89.18 Other acute postprocedural pain (principal); R10.2 Pelvic and perineal pain; Z88.6 Allergy status to analgesic agent
CPT/HCPCS: 99283

== ENCOUNTER 2019-12-19 22:07 | Emergency (ER) | payer OTHER ==
[~2019-12-19] VITALS: Ht 162.6 cm; Wt 69.0 kg
[2019-12-19 23:21] LABS: EOSINOPHILS % 1.6 % (0.0-5.0); HEMATOCRIT. 26.8 % (36.0-48.0); HEMOGLOBIN. 8.5 g/dL (12.0-16.0); MEAN CORPUSCULAR HEMOGLOBIN 25.8 pg (28.0-32.0); MEAN CORPUSCULAR VOLUME 81.4 fL (81.0-99.0); MEAN PLATELET VOLUME 6.7 fl (7.4-10.4); MONOCYTES % 7.5 % (2.0-8.0); NEUTROPHILS % 66.9 % (40.0-76.0); PLATELET 573 x1000/uL (130-400); RED BLOOD CELL COUNT 3.29 mill/uL (4.2-5.4); RED CELL DISTRIBUTION WIDTH 18.9 % (11.6-14.6)
[2019-12-19 23:28] LABS: CHLORIDE 112 mEq/L (98-107)
[2019-12-20] MEDS ORDERED: LORAZEPAM 1MG TABLET PO ONE (01:15)
[2019-12-20 03:14] VITALS: BP 105/71
== END 2019-12-20 03:33 | disposition home or self-care (01) ==
LOC: ER 22:07
DX: G89.29 Other chronic pain (principal); R10.30 Lower abdominal pain, unspecified; M79.662 Pain in left lower leg; M79.661 Pain in right lower leg; Z85.43 Personal history of malignant neoplasm of ovary; Z98.890 Other specified postprocedural states; Z88.6 Allergy status to analgesic agent
CPT/HCPCS: 36415; 80053; 81025; 85025; 99283